=== PATIENT | female | born 1950 | race Caucasian/White ===

== ENCOUNTER 2018-08-28 08:38 | Outpatient (CLI) | payer OTHER ==
[~2018-08-28 08:38] MED LIST: ATACAND HCT 31 UDTAB PO; PREMARIN0.45 MG PO; PREVACID30 MG PO
== END 2018-08-28 08:43 | disposition home or self-care (01) ==
LOC: SONOGRAMA 08:38
DX: E04.2 Nontoxic multinodular goiter (principal)

== ENCOUNTER 2022-09-25 08:27 | Outpatient (CLI) | payer OTHER | END 2022-09-25 08:46 | disposition home or self-care (01) | LOC: RX STUDY 08:27 | PROVIDERS: ATTEND Internal Medicine Gastroenterology | DX: R13.10 Dysphagia, unspecified (principal) ==